=== PATIENT | female | born 1970 ===

== ENCOUNTER 2019-08-02 15:29 | Outpatient (CLI) | payer OTHER ==
--- NOTE | 2019-08-16 08:47 | Mammography Report ---
Reason: ROUTINE MAMMO Procedure Date: 08/02/2019 Accession Number: [id number] / [id number] Procedure: MGN - Screening Mammo Dig Bilat CPT Code: Final Report FULL RESULT: EXAM: Screening Mammo Dig Bilat DATE: 08/02/2019 3:57 PM CLINICAL HISTORY: Screening encounter. History of nulliparity. Family history of breast cancer in the mother at the age of 33. TECHNIQUE: (B) - Bilateral CC and MLO views were obtained. COMPARISON: 06/25/2016 through 05/10/2013. PARENCHYMAL PATTERN: (D) - The breast(s) demonstrate(s) heterogeneously dense fibroglandular parenchyma. FINDINGS: There are no suspicious masses, calcifications, or areas of distortion. IMPRESSION: Negative examination. BI-RADS category 1. RECOMMENDATION: (ANNUAL) - Recommend routine annual screening mammography. BI-RADS CATEGORY: (1) - Negative. STANDARD QUALIFYING STATEMENTS: 1. This examination was not reviewed with the aid of Computer-Aided Detection (CAD). 2. A negative or benign imaging report should not preclude biopsy if clinically suspicious findings are present. 3. Dense breasts may obscure an underlying neoplasm. 4. This examination was reviewed without the aid of 3D breast imaging (tomosynthesis).
== END 2019-08-02 15:30 | disposition home or self-care (01) ==
LOC: DI.N 15:29
DX: Z12.31 Encounter for screening mammogram for malignant neoplasm of breast (principal); Z80.3 Family history of malignant neoplasm of breast
CPT/HCPCS: 77067

== ENCOUNTER 2021-03-21 10:54 | Outpatient (CLI) | payer OTHER ==
--- NOTE | 2021-03-24 13:20 | Mammography Report ---
BILATERAL DIGITAL SCREENING MAMMOGRAM 3D/2D: 03/21/2021 CLINICAL: Routine screening. Comparison is made to exams dated: 08/02/2019 mammogram - [facility], 06/25/2016 m ammogram, 06/26/2015 mammogram, 05/22/2014 mammogram, and 05/10/2013 mammogram - [facility]. There are scattered fibroglandular elements in both breasts. There is a new 1.2 cm oval equal density mass in the left breast at 1 o'clock middle depth 9.7 cm fro m the nipple. No other significant masses, calcifications, or other findings are seen in either breast. IMPRESSION: INCOMPLETE: NEEDS ADDITIONAL IMAGING EVALUATION The new 1.2 cm oval equal density mass in the left breast resembles a cyst and is indeterminate. An ultrasound is recommended. Given patient history of elevated lifetime breast cancer risk of approximately 30%, recommend consid eration for annual screening breast MRI as an adjunct to screening mammography. This is to be offset by approximately 6 months from patient's mammograms. This exam was interpreted at Station ID: [id number]. NOTE: For mammograms, a report in lay terms will be sent to the patient. Approximately 15% of breast malignancies will not be visualized mammographically. In the management of a palpable breast mass, a negative mammogram must not discourage biopsy of a clinically suspicious lesion. Electronically Signed By: Guicho Russ M.D. aty/:03/21/2021 13:27:16 ACR BI-RADS Category 0: Incomplete 3340F PARENCHYMAL PATTERN: (A) - The breast(s) demonstrate(s) scattered fibroglandular densities. BI-RADS CATEGORY: (0) - 0 Ultrasound [id number] Immediate follow-up LATERALITY: (L)
== END 2021-03-21 10:55 | disposition home or self-care (01) ==
LOC: DI 10:54
DX: Z12.31 Encounter for screening mammogram for malignant neoplasm of breast (principal); R92.8 Other abnormal and inconclusive findings on diagnostic imaging of breast

== ENCOUNTER 2021-04-08 13:53 | Outpatient (CLI) | payer OTHER ==
--- NOTE | 2021-04-09 15:25 | Ultrasound Report ---
LIMITED ULTRASOUND OF LEFT BREAST: 04/08/2021 CLINICAL: Patient returns today to evaluate a focal asymmetry in the left breast. Comparison is made to exams dated: 03/21/2021 mammogram, 08/02/2019 mammogram - [facility], 06/25/2016 mammogram, 06/26/2015 mammogram, 05/22/2014 mammogram, and 05/10/2013 mammogram - [facility]. Color flow and real-time ultrasound of the left breast 1 o'clock region were performed. Guido scale images of the real-time examination were reviewed. There is a benign 0.7 cm x 0.5 cm x 0.6 cm cyst in the left breast at 1 o'clock middle depth. There also is a benign 1.1 cm x 0.6 cm x 1.1 cm cyst in the left breast at 1 o'clock posterior depth 10 cm from the nipple. IMPRESSION: BENIGN There is no sonographic evidence of malignancy. The 0.7 cm x 0.5 cm x 0.6 cm cyst in the left breast at 1 o'clock middle depth is consistent with a s imple cyst and is benign. The 1.1 cm x 0.6 cm x 1.1 cm cyst in the left breast at 1 o'clock posterior depth is consistent with a simple cyst and is benign. A 1 year screening mammogram is recommended. This exam was interpreted at Station ID: [id number]. Electronically Signed By: Placido Read acr/:04/08/2021 14:52:12 Ultrasound BI-RADS: 2 Benign BI-RADS CATEGORY: (2) - 2 RECOMMENDATION: (ANNUAL) - Recommend routine annual screening mammography. [id number] 1 year screening LATERALITY: (B)
== END 2021-04-08 13:54 | disposition home or self-care (01) ==
LOC: DI 13:53
PROVIDERS: ATTEND Family Medicine
DX: R92.8 Other abnormal and inconclusive findings on diagnostic imaging of breast (principal); N60.02 Solitary cyst of left breast

== ENCOUNTER 2021-04-09 08:02 | Outpatient (CLI) | payer OTHER | END 2021-04-09 08:03 | disposition home or self-care (01) | LOC: DI 08:02 | PROVIDERS: ATTEND Family Medicine | DX: R60.0 Localized edema (principal); I10 Essential (primary) hypertension | CPT/HCPCS: 93306 ==